=== PATIENT | female | born 1990 | race Caucasian/White ===

== ENCOUNTER 2021-06-24 15:50 | Outpatient (REF) | payer MEDICAID, SELFPAY ==
[2021-06-24 14:39] LABS: HCT 46.9 % (36.0-46.0); HGB 15.2 g/dL (11.2-15.7); MCH 34.2 pg (27.0-33.0); MCHC 32.4 % (32.0-36.0); MCV 105.6 fL (80-95); MPV 11.9 fL (8.0-11.0); Platelet Count 270 10^3/uL (130-400); RBC 4.44 10^6/uL (3.93-5.22); RDW 13.2 % (11.7-14.6); WBC 12.65 10^3/uL (4.4-10.8)
[2021-06-24 15:00] LABS: ALT 302 U/L (14-59); AST 231 U/L (15-37); Albumin 4.3 g/dL (3.4-5.0); Alkaline Phosphatase 81 U/L (46-116); Anion Gap 7.6 mmol/L (3-11); BUN 9 mg/dL (7-18); Bilirubin, Total 0.5 mg/dL (0.2-1.0); CO2 28.4 mmol/L (21.0-32.0); CREATININE 0.8 mg/dL (0.55-1.02); Calcium 9.5 mg/dL (8.5-10.1); Chloride 101 mmol/L (98-107); Glucose 88 mg/dL (74-106); Potassium 4.7 mmol/L (3.5-5.1); Sodium 137 mmol/L (136-145); TSH 2.03 uIU/mL (0.36-3.74)
[2021-06-25 00:23] LABS: Vitamin D 25 Total 18.7 ng/mL (30-100)
[2021-06-25 07:48] LABS: Abs Immature Grans 0.04 10^3/uL (0.0-0.06); Absolute Eosinophil Count 0.25 10^3/uL (0.0-0.7); Absolute Monocyte Count 0.71 10^3/uL (0.1-0.8); Absolute Neutrophil Count 9.24 10^3/uL (1.2-6.7); Basophils % 0.8; Eosinophils % 1.9; Immature Grans % 0.3; Lymphocytes % 19.5; Monocytes % 5.5
== END 2021-06-24 15:51 | disposition home or self-care (01) ==
LOC: NCHCN 15:50
PROVIDERS: PCP Family Medicine; Visit Provider Registered Nurse
DX: Z86.59 Personal history of other mental and behavioral disorders (principal)
CPT/HCPCS: 80053; 82306; 85027; 84443; 85007

== ENCOUNTER 2021-07-08 17:08 | Outpatient (REF) | payer MEDICAID, SELFPAY ==
[2021-07-08 18:29] LABS: Abs Immature Grans 0.03 10^3/uL (0.0-0.06); Absolute Lymphocyte Count 2.79 10^3/uL (1.2-3.4); Absolute Neutrophil Count 9.56 10^3/uL (1.2-6.7); Basophils % 0.8; Eosinophils % 0.8; HCT 52.4 % (36.0-46.0); HGB 16.5 g/dL (11.2-15.7); Immature Grans % 0.2; Lymphocytes % 21.3; MCH 33.3 pg (27.0-33.0); MCHC 31.5 % (32.0-36.0); MCV 105.6 fL (80-95); MPV 12.7 fL (8.0-11.0); Neutrophils % 72.9; Nucleated RBC 0 %; Platelet Count 329 10^3/uL (130-400); RBC 4.96 10^6/uL (3.93-5.22); RDW 12.6 % (11.7-14.6); RDW-SD 49.8 fL; WBC 13.12 10^3/uL (4.4-10.8)
[2021-07-08 18:30] LABS: Absolute Monocyte Count 0.52 10^3/uL (0.1-0.8)
[2021-07-08 18:39] LABS: ALT 255 U/L (14-59); AST 107 U/L (15-37)
[2021-07-08 18:48] LABS: Diff Comment Agrees w/ Instrument
[2021-07-08 18:49] LABS: Macrocytosis 2+
== END 2021-07-08 17:09 | disposition home or self-care (01) ==
LOC: NCHCN 17:08
PROVIDERS: PCP Family Medicine; Visit Provider Registered Nurse
DX: F10.10 Alcohol abuse, uncomplicated (principal); D72.828 Other elevated white blood cell count; F41.8 Other specified anxiety disorders; D75.89 Other specified diseases of blood and blood-forming organs
CPT/HCPCS: 84450; 84460; 85025

== ENCOUNTER 2021-11-26 16:53 | Outpatient (REF) | payer MEDICAID, SELFPAY ==
[2021-11-26 15:24] LABS: Abs Immature Grans 0.03 10^3/uL (0.0-0.06); Absolute Basophil Count 0.07 10^3/uL (0.0-0.2); Absolute Eosinophil Count 0.16 10^3/uL (0.0-0.7); Absolute Lymphocyte Count 2.81 10^3/uL (1.2-3.4); Absolute Monocyte Count 0.45 10^3/uL (0.1-0.8); Absolute Neutrophil Count 5.66 10^3/uL (1.2-6.7); Basophils % 0.8; Eosinophils % 1.7; HGB 15.3 g/dL (11.2-15.7); Immature Grans % 0.3; Lymphocytes % 30.6; MCH 33.8 pg (27.0-33.0); MCHC 33.3 % (32.0-36.0); MCV 102 fL (80-95); MPV 11.4 fL (8.0-11.0); Monocytes % 4.9; Neutrophils % 61.7; Platelet Count 277 10^3/uL (130-400); RBC 4.53 10^6/uL (3.93-5.22); RDW 16.8 % (11.7-14.6); RDW-SD 62.7 fL; WBC 9.18 10^3/uL (4.4-10.8)
[2021-11-26 15:34] LABS: ALT 59 U/L (14-59); AST 39 U/L (15-37); Albumin 3.9 g/dL (3.4-5.0); Alkaline Phosphatase 73 U/L (46-116); Anion Gap 8.7 mmol/L (3-11); BUN 13 mg/dL (7-18); Bilirubin, Total 0.4 mg/dL (0.2-1.0); CO2 26.3 mmol/L (21.0-32.0); CREATININE 0.9 mg/dL (0.55-1.02); Calcium 9.2 mg/dL (8.5-10.1); Chloride 106 mmol/L (98-107); Glucose 95 mg/dL (74-106); Potassium 4.8 mmol/L (3.5-5.1); Sodium 141 mmol/L (136-145); Total Protein 7.5 g/dL (6.4-8.2)
== END 2021-11-26 16:54 | disposition home or self-care (01) ==
LOC: NCHCN 16:53
PROVIDERS: PCP Family Medicine; Visit Provider Registered Nurse
DX: D75.1 Secondary polycythemia (principal); D75.89 Other specified diseases of blood and blood-forming organs; D72.829 Elevated white blood cell count, unspecified; R79.89 Other specified abnormal findings of blood chemistry
CPT/HCPCS: 80053; 85025